=== PATIENT | male | born 1990 | race Hispanic/Latino ===

== ENCOUNTER 2018-04-24 07:40 | Emergency (ER) | payer SELFPAY ==
--- NOTE | 2018-04-24 08:34 | RAD REPORT ---
EXAM DESCRIPTION: CT - Head Brain Wo Cont - 04/24/2018 8:19 am CLINICAL HISTORY: near syncope;Dizziness TIA/CVA. COMPARISON: No comparisons TECHNIQUE: All CT scans are performed using dose optimization technique as appropriate and may inclu de automated exposure control or mA/KV adjustment according to patient size. FINDINGS: No intracranial hemorrhage, hydrocephalus or extra-axial fluid collection.No areas of brai n edema or evidence of midline shift. The paranasal sinuses and mastoids are clear. The calvarium is intact. IMPRESSION: No acute intracranial abnormality.
[2018-04-24 09:21] LABS: Absolute Lymphocytes (CBC) 1.5 K/uL (0.7-4.9); Absolute Monocytes 0.3 K/uL (0.1-1.3); Absolute Neutrophil 2.9 K/uL (1.8-8.0); Basophils % 0.6 % (0-1.3); Eosinophils % 2.5 % (0-4.4); Hematocrit 46.2 % (39.6-49.0); Lymphocytes % 30.9 % (15.3-44.8); MCH 30.5 pg (27.0-35.0); MCV 90.4 fL (80-100); MPV 9.3 fL (7.6-11.3); Monocytes % 6.5 % (3.3-12.3); RBC Red Blood Cell Count 5.11 M/uL (4.33-5.43)
[2018-04-24 09:47] LABS: ALT/SGPT 41 U/L (12-78); AST/SGOT 21 U/L (15-37); Albumin 4.1 g/dL (3.4-5.0); Alkaline Phosphatase 52 U/L (45-117); BUN Blood Urea Nitrogen 8 mg/dL (7-18); Bicarbonate 25 mmol/L (21-32); Bilirubin Direct 0.1 mg/dL (0-0.2); Bilirubin Total 0.4 mg/dL (0.2-1.0); Glucose Level 90 mg/dL (74-106); Potassium 3.8 mmol/L (3.5-5.1); Protein, Total 7.3 g/dL (6.4-8.2); Sodium Level 141 mmol/L (136-145); Troponin (Emerg Dept Use Only) < 0.02 ng/mL (0.0-0.045)
--- NOTE | 2018-04-24 09:52 | EDPHYS ---
Physician Documentation [facility] Name: Rocco Kang Jr Age: 27 yrs Sex: Male : 1990 Arrival Date: 04/24/2018 Time: 07:43 Bed 13 Private MD: ED Physician Maxi Marshall HPI: 04/24 08:44 This 27 yrs old Male presents to ER via Ambulatory with complaints of jr8 Dizziness . 08:44 Onset: The symptoms/episode began/occurred gradually, 4 month(s) ago. Modifying jr8 factors: The symptoms are alleviated by holding head still, lying down, the symptoms are aggravated by movement of head, standing up, changing position. Associated signs and symptoms: Pertinent positives: near-syncope. Severity of symptoms: At their worst the symptoms were moderate in the emergency department the symptoms have resolved. Patient's baseline: Neuro: alert and fully oriented, Motor: no deficits, Ambulation: walks without assistance, Speech: normal. The patient has experienced similar episodes in the past, multiple times. The patient has not recently seen a physician. Stated that he has had dizziness and near syncope feeling for several months. [facility] [place] without an answer. Had a bad bout this morning which is why he came here. Now resolved.. Historical: - Allergies: 07:52 No Known Allergies; ss - Home Meds: 07:52 None [Active]; ss - PMHx: 07:52 None; ss - PSHx: 07:52 None; ss - Immunization history:: Adult Immunizations up to date. - Social history:: Smoking status: Patient uses tobacco products, smokes one-half pack cigarettes per day. - Ebola Screening: : Patient denies exposure to infectious person Patient denies travel to an Ebola-affected area in the 21 days before illness onset. ROS: 08:44 Eyes: Negative for injury, pain, redness, and discharge, ENT: Negative for injury, jr8 pain, and discharge, Neck: Negative for injury, pain, and swelling, Cardiovascular: Negative for chest pain, palpitations, and edema, Respiratory: Negative for shortness of breath, cough, wheezing, and pleuritic chest pain, Abdomen/GI: Negative for abdominal pain, nausea, vomiting, diarrhea, and constipation, Back: Negative for injury and pain, MS/Extremity: Negative for injury and deformity, Skin: Negative for injury, rash, and discoloration. 08:44 Neuro: Positive for dizziness, near syncope, Negative for altered mental status, gait disturbance, headache, loss of consciousness, numbness, seizure activity, speech changes, syncope, tingling, tinnitus, tremor, visual changes, weakness. Exam: 08:44 Eyes: Pupils equal round and reactive to light, extra-ocular motions intact. Lids and jr8 lashes normal. Conjunctiva and sclera are non-icteric and not injected. Cornea within normal limits. Periorbital areas with no swelling, redness, or edema. ENT: Nares patent. No nasal discharge, no septal abnormalities noted. Tympanic membranes are normal and external auditory canals are clear. Oropharynx with no redness, swelling, or masses, exudates, or evidence of obstruction, uvula midline. Mucous membranes moist. Neck: Trachea midline, no thyromegaly or masses palpated, and no cervical lymphadenopathy. Supple, full range of motion without nuchal rigidity, or vertebral point tenderness. No Meningismus. Cardiovascular: Regular rate and rhythm with a normal S1 and S2. No gallops, murmurs, or rubs. Normal PMI, no JVD. No pulse deficits. Respiratory: Lungs have equal breath sounds bilaterally, clear to auscultation and percussion. No rales, rhonchi or wheezes noted. No increased work of breathing, no retractions or nasal flaring. Abdomen/GI: Soft, non-tender, with normal bowel sounds. No distension or tympany. No guarding or rebound. No evidence of tenderness throughout. Back: No spinal tenderness. No costovertebral tenderness. Full range of motion. Skin: Warm, dry with normal turgor. Normal color with no rashes, no lesions, and no evidence of cellulitis. MS/ Extremity: Pulses equal, no cyanosis. Neurovascular intact. Full, normal range of motion. Neuro: Awake and alert, GCS 15, oriented to person, place, time, and situation. Cranial nerves II-XII grossly intact. Motor strength 5/5 in all extremities. Sensory grossly intact. Cerebellar exam normal. Normal gait. Vital Signs: 07:52 BP 127 / 85; Pulse 66; Resp 15; Temp 97.6(TE); Pulse Ox 100% on R/A; Weight 77.11 kg; ss Height 5 ft. 6 in. (167.64 cm); Pain 0/10; 09:00 BP 123 / 80; Pulse 69; Resp 16; Pulse Ox 100% on R/A; hb 09:59 BP 115 / 80; Pulse 68; Resp 15; Pulse Ox 100% on R/A; hb 07:52 Body Mass Index 27.44 (77.11 kg, 167.64 cm) ss MDM: 07:52 Patient medically screened. [facility] 09:51 Data reviewed: vital signs, nurses notes, lab test result(s), EKG, radiologic studies, [facility] CT scan, plain films. Data interpreted: Pulse oximetry: on room air is 100 %. Interpretation: normal. Counseling: I had a detailed discussion with the patient and/or guardian regarding: the historical points, exam findings, and any diagnostic results supporting the discharge/admit diagnosis, lab results, radiology results, the need for outpatient follow up, an ENT specialist, a family practitioner, to return to the emergency department if symptoms worsen or persist or if there are any questions or concerns that arise at home. 04/24 08:09 Order name: Basic Metabolic Panel; Complete Time: 09:51 04/24 08:09 Order name: CBC with Diff; Complete Time: 09:33 04/24 08:09 Order name: LFT's; Complete Time: 09:04/24 08:09 Order name: Magnesium; Complete Time: 09:51 04/24 08:09 Order name: XRAY Chest (1 view) 04/24 08:09 Order name: Troponin (emerg Dept Use Only); Complete Time: 09:51 04/24 08:09 Order name: EKG; Complete Time: 08:04/24 08:09 Order name: Cardiac monitoring; Complete Time: 08:04/24 08:09 Order name: EKG - Nurse/Tech; Complete Time: 08:04/24 08:09 Order name: IV Saline Lock; Complete Time: 08:04/24 08:09 Order name: Labs collected and sent; Complete Time: 08:04/24 08:09 Order name: O2 Per Protocol; Complete Time: 08:04/24 08:09 Order name: O2 Sat Monitoring; Complete Time: 08:04/24 08:09 Order name: CT Head Brain wo Cont; Complete Time: 08:41 jr8 Administered Medications: No medications were administered Point of Care Testing: Blood Glucose: 07:53 Blood Glucose: 80 mg/dL; ss Ranges: Critical Glucose Levels:Adult <50 mg/dl or >400 mg/dl <40 mg/dl or >180 mg/dl Disposition: 13:56 Co-signature as Attending Physician, Maxi Marshall MD I agree with the assessment and [facility] plan of care. Disposition: 04/24/18 09:52 Discharged to Home. Impression: Dizziness and giddiness. - Condition is Stable. - Discharge Instructions: Benign Positional Vertigo, Dizziness. - Prescriptions for Meclizine 25 mg Oral Tablet - take 1 tablet by ORAL route every 8 hours As needed; 30 tablet. - Medication Reconciliation Form, Thank You Letter, Antibiotic Education, Prescription Opioid Use form. - Follow up: Virginia Mercedes MD; When: 1 week; Reason: Recheck today's complaints, Continuance of care, Re-evaluation by your physician. - Problem is new. - Symptoms have improved. Signatures: Dispatcher [employer] EDIL Maxi Marshall MD MD cha Smirch, Shelby, RN RN Franky Chowdary PA PA jr8 Kareen Veras, RN RN Corrections: (The following items were deleted from the chart) 10:00 09:52 04/24/2018 09:52 Discharged to Home. Impression: Dizziness and giddiness. hb Condition is Stable. Forms are Medication Reconciliation Form, Thank You Letter, Antibiotic Education, Prescription Opioid Use. Follow up: Virginia Mercedes; When: 1 week; Reason: Recheck today's complaints, Continuance of care, Re-evaluation by your physician. Problem is new. Symptoms have improved. jr8
--- NOTE | 2018-04-24 09:52 | ER ---
Nurse's Notes [facility] Name: Rocco Kang Jr Age: 27 yrs Sex: Male : 1990 Arrival Date: 04/24/2018 Time: 07:43 Bed 13 Private MD: Diagnosis: Dizziness and giddiness Presentation: 04/24 07:51 Presenting complaint: Patient states: "I felt dizzy, like I was going to throw up and ss pass out about an hour ago. My head doesn't hurt, but it feels weird." Pt reports he has had nothing to eat today and his symptoms are worse when walking. Gait is steady. Transition of care: patient was not received from another setting of care. Onset of symptoms was April 24, 2018. Risk Assessment: Do you want to hurt yourself or someone else? Patient reports no desire to harm self or others. Initial Sepsis Screen: Does the patient meet any 2 criteria? No. Patient's initial sepsis screen is negative. Does the patient have a suspected source of infection? No. Patient's initial sepsis screen is negative. Care prior to arrival: None. 07:51 Method Of Arrival: Ambulatory ss 07:51 Acuity: MIRACLE 3 ss Historical: - Allergies: 07:52 No Known Allergies; ss - Home Meds: 07:52 None [Active]; ss - PMHx: 07:52 None; ss - PSHx: 07:52 None; ss - Immunization history:: Adult Immunizations up to date. - Social history:: Smoking status: Patient uses tobacco products, smokes one-half pack cigarettes per day. - Ebola Screening: : Patient denies exposure to infectious person Patient denies travel to an Ebola-affected area in the 21 days before illness onset. Screenin:15 Abuse screen: Denies threats or abuse. Denies injuries from another. Nutritional hb screening: No deficits noted. Tuberculosis screening: No symptoms or risk factors identified. Fall Risk None identified. Assessment: 08:15 General: Appears in no apparent distress. Behavior is calm, cooperative. Pain: Denies hb pain. Neuro: Level of Consciousness is awake, alert, obeys commands, Oriented to person, place, time, situation. Cardiovascular: Capillary refill < 3 seconds Patient's skin is warm and dry. Respiratory: Airway is patent Trachea midline Respiratory effort is even, unlabored, Respiratory pattern is regular, symmetrical, Breath sounds are clear bilaterally. GI: No signs and/or symptoms were reported involving the gastrointestinal system. : No signs and/or symptoms were reported regarding the genitourinary system. EENT: No signs and/or symptoms were reported regarding the EENT system. Derm: No signs and/or symptoms reported regarding the dermatologic system. Skin is intact, is healthy with good turgor, Skin is pink, warm \\T\\ dry. Musculoskeletal: No signs and/or symptoms reported regarding the musculoskeletal system. 09:00 Reassessment: Patient appears in no apparent distress at this time. Patient and/or hb family updated on plan of care and expected duration. Pain level reassessed. Patient is alert, oriented x 3, equal unlabored respirations, skin warm/dry/pink. 09:59 Reassessment: Patient appears in no apparent distress at this time. Patient and/or hb family updated on plan of care and expected duration. Pain level reassessed. Patient is alert, oriented x 3, equal unlabored respirations, skin warm/dry/pink. Vital Signs: 07:52 BP 127 / 85; Pulse 66; Resp 15; Temp 97.6(TE); Pulse Ox 100% on R/A; Weight 77.11 kg; Height 5 ft. 6 in. (167.64 cm); Pain 0/10; 09:00 BP 123 / 80; Pulse 69; Resp 16; Pulse Ox 100% on R/A; hb 09:59 BP 115 / 80; Pulse 68; Resp 15; Pulse Ox 100% on R/A; hb 07:52 Body Mass Index 27.44 (77.11 kg, 167.64 cm) ED Course: 07:43 Patient arrived in ED. as 07:52 Triage completed. ss 07:52 Maxi Marshall MD is Attending Physician. [facility] 07:52 Franky Chowdary PA is PHCP. jr8 07:52 Arm band placed on right wrist. ss 07:58 Codi Messer, RN is Primary Nurse. ls4 08:02 Patient has correct armband on for positive identification. Placed in gown. Bed in low hb position. 08:19 CT Head Brain wo Cont In Process Unspecified. EDMS 08:25 EKG done, by technology adoption manager. reviewed by Franky ORNELAS. at1 08:26 Initial lab(s) drawn, by me, sent to lab. Inserted saline lock: 20 gauge in right 3 antecubital area, using aseptic technique. Blood collected. 09:21 XRAY Chest (1 view) In Process Unspecified. EDMS 09:52 Virginia Mercedes MD is Referral Physician. jr8 09:59 No provider procedures requiring assistance completed. IV discontinued, intact, hb bleeding controlled, No redness/swelling at site. Pressure dressing applied. Administered Medications: No medications were administered Point of Care Testing: Blood Glucose: 07:53 Blood Glucose: 80 mg/dL; ss Ranges: Outcome: :52 Discharge ordered by . jr8 09:59 Discharged to home ambulatory. hb 09:59 Condition: stable 09:59 Discharge instructions given to patient, Instructed on discharge instructions, follow up and referral plans. medication usage, Demonstrated understanding of instructions, follow-up care, medications, Prescriptions given X 1. 10:00 Patient left the ED. hb Signatures: Dispatcher [employer] EDMN Maxi Marshall MD MD cha Martinez, Amelia as Smirch, Shelby, ANNA RN Franky Chowdary PA PA jr8 Yessica Calvert, braille typist EKG Tat1 Kareen Veras, RN RN Chary Mercedes [facility] Codi Messer, RN RN ls4
--- NOTE | 2018-04-24 10:33 | RAD REPORT ---
EXAM DESCRIPTION: RAD - Chest Single View - 04/24/2018 9:20 am CLINICAL HISTORY: near syncope Chest pain. COMPARISON: No comparisons FINDINGS: Portable technique limits examination quality. The lungs are grossly clear. The heart is normal in size. No displaced fractures. IMPRESSION: No acute intrathoracic process suspected.
--- NOTE | 2018-04-24 11:21 | EKG ---
Test Date: 2018-04-24 Test Time: 08:20:00 Data Integration Developer: DEMETRIUS MEASUREMENT RESULTS: Intervals: Rate: 56 PA: 140 QRSD: 102 QT: 418 QTc: 403 [place]: P: 43 PA: 140 QRS: 56 T: 35 INTERPRETIVE STATEMENTS: Sinus bradycardia Otherwise normal ECG No previous ECG available for comparison Electronically Signed On 04-24-18 11:21:01 CDT by Daniel Pierre
== END 2018-04-24 10:00 | disposition home or self-care (01) ==
LOC: ER 07:40
DX: R42 Dizziness and giddiness (principal); F17.210 Nicotine dependence, cigarettes, uncomplicated
CPT/HCPCS: 36415; 70450; 71045; 80048; 80076; 82962; 83735; 84484; 85025; 93005; 99284